=== PATIENT | male | born 1960 | race Caucasian/White ===

== ENCOUNTER 2024-07-25 22:06 | Emergency (ER) | payer OTHER, SELFPAY ==
[2024-07-25 22:28] VITALS: BP 156/82; PULSE 70; RESP 16; TEMP 36.6; O2SAT 96; BMI 28.8
--- NOTE | 2024-07-25 22:42 | XRR_ITS ---
PROCEDURE INFORMATION: Exam: XR Right Knee Exam date and time: 07/25/2024 11:15 PM Age: 63 years old Clinical indication: Injury or trauma; Fall; Blunt trauma; Knee; Bilateral; Additional info: Pain TECHNIQUE: Imaging protocol: Radiologic exam of the right knee. Views: 3 views. COMPARISON: No relevant prior studies available. FINDINGS: Bones/joints: Demineralization of the visualized bones. Small knee joint effusion. Mild degenerative disease of the knee joint. Soft tissues: Normal. Vasculature: Soft tissue phleboliths. Vascular calcifications. XR/XR knee RT 3V* [id number] IMPRESSION: No acute fracture or dislocation.
[2024-07-25 22:59] VITALS: BP 123/77; PULSE 71; RESP 16; O2SAT 96
--- NOTE | 2024-07-25 23:03 | XRR_ITS ---
PROCEDURE INFORMATION: Exam: XR Left Knee Exam date and time: 07/25/2024 11:17 PM Age: 63 years old Clinical indication: Injury or trauma; Fall; Blunt trauma; Knee; Bilateral; Additional info: Fall/pain TECHNIQUE: Imaging protocol: Radiologic exam of the left knee. Views: 3 views. COMPARISON: No relevant prior studies available. FINDINGS: Bones/joints: Narrowing of the lateral knee joint compartment with marginal osteophytes, consistent with moderate degenerative disease. Small knee joint effusion. No acute fracture or dislocation. Soft tissues: Prepatellar soft swelling, suggestive of hematoma. XR/XR knee LT 3V* [id number] IMPRESSION: No acute fracture or dislocation.
--- NOTE | 2024-07-25 23:04 | ED_ITS ---
HPI - Extremity Problem General: Chief complaint: Extremity Injury, Lower Stated complaint: fall left knee injury Time Seen by Provider: 07/25/24 22:33 Source: patient Mode of arrival: ambulatory Limitations: no limitations History of Present Illness: Patient is a 63-year-old male presenting to the emergency department complaining of a fall and bilateral knee pain. Patient was walking upstairs when he tripped landing on both knees, left worse than right. Is on Eliquis currently, states he has been able to walk but still has pain. No radiation of the pain other than some mild radiation proximally of the left knee. Reporting bruising and swelling to left knee, states that swelling on the right knee has gone down. Took some Tylenol before coming in. No previous surgical history or fracture /dislocation of the knees. No other injuries reported with the fall. MD Complaint: joint pain (bilateral knees) Onset (ago): minute(s) Pain Consistency: constant Location: left, right and knee Associated symptoms: Deny chest pain, fever(s) or rash Related Data Allergies Allergy/AdvReac Type Severity Reaction Status Date / Time nabumetone [From Relafen] Allergy Unknown Unknown Verified 07/25/24 22:32 Review of Systems General: Reports: 10 or more systems reviewed and unremarkable except in HPI and below Const: Denies: fever(s) or chills Card: Denies: chest pain Resp: Denies: dyspnea or productive cough GI: Denies: abdominal pain, nausea, vomiting or diarrhea : Denies: flank pain Musc: Reports: joint pain (Bilateral knees) and joint swelling (Bilateral knees); Denies: neck pain, back pain, extremity pain, extremity swelling, joint redness, joint warmth, limited range of motion or muscle weakness Skin/Breast: Denies: rash Neuro: Denies: headache(s), numbness in extremities or weakness in extremities Physical Exam Const: COMMON NORMALS: no acute distress, patient oriented x3, no limitations, healthy appearing, alert and well nourished HENMT: COMMON NORMALS: normocephalic and atraumatic HEAD & SCALP: normocephalic and atraumatic Neck/C-Spine: COMMON NORMALS: full ROM, supple and no meningeal signs Resp: COMMON NORMALS: normal respiratory effort, No use of accessory muscles and clear to auscultation bilaterally AUSCULTATION: clear to auscultation bilaterally Cardio: COMMON NORMALS: regular rate and regular rhythm RATE: regular rate RHYTHM: regular rhythm Extremity: NARRATIVE EXTREMITY EXAM: Left knee is diffusely swollen and there is ecchymosis noted inferior to the left patella. Diffuse tenderness to palpation of this knee, extending proximally up the left femur. Right knee also tender to palpation, though significantly less swollen. No calf tenderness. Good strength distally. Normal ankle examination. Normal hip examination Neuro: COMMON NORMALS: patient oriented x3, moves all extremities, no focal motor deficits and no sensory deficits noted SENSORIUM/ORIENTATION: Yes alert MENINGEAL SIGNS: Yes no meningeal signs Skin: COMMON NORMALS: no rashes or lesions noted GENERAL SKIN EXAM: no rashes or lesions noted Course Vital Signs: Vital signs: Vital Signs Temperature 97.8 F 07/25/24 22:28 Pulse Rate 71 07/25/24 22:59 Respiratory Rate 16 07/25/24 22:59 Blood Pressure 123/77 07/25/24 22:59 Pulse Oximetry 96 07/25/24 22:59 Oxygen Delivery Me thod Room Air 07/25/24 22:59 MDM - Extremity (Nontraumatic) Medical Decision Making Patient injured both of his knees prior to arrival after going up steps and falling onto them. Left noted to be worse than right, as there was bruising and swelling noted to the left knee. He is on a blood thinner. X-rays did not demonstrate any acute fractures or dislocations. We will treat with RICE therapy and he is encouraged to follow-up with his primary care provider for further evaluation as needed. Lab Data Radiology Impressions Knee X-Ray 07/25/24 23:03 IMPRESSION: No acute fracture or dislocation. All radiology interpretation(s) finalized by discharge Discharge Plan Discharge Patient Disposition: Home Clinical Impression: Contusion of knee, left Qualifiers: Encounter type: initial encounter Qualified Code(s): S80.02XA - Contusion of left knee, initial encounter Contusion of knee, right Qualifiers: Encounter type: initial encounter Qualified Code(s): S80.01XA - Contusion of right knee, initial encounter Condition: Stable Discharge Orders: Discharge ED (Routine); Ordered 07/26/24 Ordered By: Ayad Rashid Discharge Diet: Usual diet Discharge Activity: Increase activity as tolerated Patient Instructions: Contusion in Adults (ED) Activity Restrictions/Additional Instructions: Rest, ice, compression, and elevation. Tylenol or ibuprofen for pain. Follow- up with your primary care provider and return with any new or worsening. Coding Level of Care Code ED Supervisor [employer] for Raeann Young
[2024-07-26 00:56] VITALS: BP 97/75; PULSE 74; O2SAT 98
== END 2024-07-26 00:57 | disposition home or self-care (01) ==
PROVIDERS: Emergency Provider Physician Assistant
DX: S80.02XA Contusion of left knee, initial encounter (principal); S80.01XA Contusion of right knee, initial encounter; Z79.01 Long term (current) use of anticoagulants; W10.9XXA Fall (on) (from) unspecified stairs and steps, initial encounter
CPT/HCPCS: 73562; 99283